=== PATIENT | male | born 1965 | race Caucasian/White ===

== ENCOUNTER → 2020-09-27 08:41 | Outpatient (BNVA) | payer OTHER, SELFPAY | PROVIDERS: PCP Nurse Practitioner Family; Referring Provider Nurse Practitioner Family; Visit Provider Nurse Practitioner Family ==

== ENCOUNTER 2020-11-26 07:12 | Day surgery (SDC) | payer OTHER, SELFPAY ==
[2020-11-22 19:04] VITALS: BMI 29.7
--- NOTE | 2020-11-26 07:43 | MHC.SHP ---
Pre-Procedural Eval Section A Date of Service: 11/26/20 The patient is an INPATIENT: No The History & Physical has been completed within 30 days and I have reviewed it.: No Section B Chief Complaint: Screening Details of Present Illness: Colon cancer screening Relevant Family History (Specify if Yes): No Relevant Social History: Tobacco Use Present Medications: see Short Stay Collaborative assessment Medical History: Significant History (Htn) History of Previous Operations: Relevant previous surgery/procedure and date(s) (Inguinal hernia surgery) Allergies: Allergies Allergy/AdvReac Type Severity Reaction Status Date / Time codeine Allergy Unknown Unknown Verified 09/27/20 09:03 Any med. w/ codeine AdvReac Unknown Unknown Uncoded 11/26/20 07:12 Review of Systems Sugical H&P ROS: Negative: Constitution, Cardiovascular, Respiratory and Gastrointestinal Exam Surgical H&P Exam: Normal: Heart, Normal: Lungs, Normal: Extremities and Normal: Abdomen Plan Diagnosis/Plan: Unchanged I have reviewed the history and physical and performed a pertinent physical examination on my patient. No changes have occurred unless specified.
[2020-11-26 07:59] VITALS: BP 160/92; PULSE 78; RESP 16; TEMP 36.1; O2SAT 97
--- NOTE | 2020-11-26 08:02 | HO.ANESPROP2 ---
HPI - Anesthesia Eval Consult details Narrative: 55 yo male patient for colonoscopy PMFSH Active Problems Active Problems: All Active Problems (Updated 11/22/20 @ 19:03 by Trudi Loco RN) Physical exam (Acute) Screening PSA (prostate specific antigen) (Acute) Screening for colon cancer (Acute) Etoh- 3 beers a day Smoker H/o right leg surgery- slow awakening Past Medical History Medical History High cholesterol Hypertension Laceration of leg Family History Family History Father No problems noted. Mother Breast cancer Son No problems noted. Son No problems noted. Maternal Grandfather No problems noted. Maternal Grandmother Cancer Paternal Grandfather No problems noted. Paternal Grandmother No problems noted. Family history of problems with anesthesia: No Surgical History Surgical History History of inguinal hernia History of Problems with Anesthesia: Yes (Slow awakening) Social History Social History Alcohol intake: current Alcohol intake frequency: 3 or more drinks per day Patient Tobacco Use Status: Current everyday Tobacco user Tobacco use type: Cigarette Cigarette Packs Per Day: 1 Cigarettes Per Day: 20.0 Years Smoked: 35 Smoked in Last 30 Days: Yes Patient Interested in Nicotine Replacement: No Patient Given Instructions on How to Stop Smoking: Yes Date Education Initiated: 11/22/20 Use of substances other than those prescribed or required for medical reasons: No Are you DNR?: No Advance Directives: No Advance Directives Information Provided: No Advance Directives on File: No Recently lost weight without trying: No Meds Allergies Allergy/AdvReac Type Severity Reaction Status Date / Time codeine Allergy Unknown Unknown Verified 09/27/20 09:03 Any med. w/ codeine AdvReac Unknown Unknown Uncoded 11/26/20 07:12 Home Medications Medication Instructions Recorded Confirmed Last Taken Type cyclobenzaprine 5 mg tablet 5 mg PO TID PRN 11/22/20 11/22/20 Unknown History melatonin 1 mg tablet 0.5 mg PO BEDTIME 11/22/20 11/22/20 Unknown History Exam Exam Date and Time: November 26, 2020 0802 Height,Weight and Vital Signs: Height 5 ft 7 in Weight 86.183 kg Vital Signs Temp Pulse Resp BP Pulse Ox 11/26/20 07:59 96.9 F 78 16 160/92 H 97 Airway Mallampati Class: III TM Dist: >3cm Neck ROM: Full Heart: RRR Lungs: CTAB Assessment and Plan Assessment Anesthesia Assessment: Anesthesia Plan Discussed and Chart Reviewed Final Anesthetic Review Family History of Problems with Anesthesia: No History of Problems with Anesthesia: Yes (Slow awakening) NPO: Yes ASA Class: II Final Preanesthetic Review: No Changes in Pt Med Stat, Meds/Allgs Chart Reviewed, Consent Obtained/Reviewed and Anes Risks/Benef Reviewed Patient Risk: Low Procedure Risk: Low Assessment/Block/Sedation in SS: Assess/Block/Sedation-SS Anesthetic Plan Anesthetic Plan: MAC: Disposition: Standard PACU
[2020-11-26] MEDS: Lactated Ringers 1,000 ML 100 ML IVCONT (08:05)
--- NOTE | 2020-11-26 08:28 | W.PM.OPN ---
Operative Note Operative Note Date of Service: 11/26/20 Narrative: Pre-op diagnosis:?Colon cancer screening Post-op diagnosis:?other (Colon polyps, diverticulosis, hemorrhoids) Procedure:? COLONOSCOPY TILL CECUM WITH BIOPSIES AND SNARE POLYPECTOMY Consent: Indications for the procedure and potential complications of bleeding, perforation, reaction to medications and missed diagnosis were discussed with the patient and informed consent was obtained. Instrument: Olympus PCF H 190 L variable stiffness pediatric colonoscope Monitoring: Vital signs and clinical assessment, intermittent blood pressure monitoring, continuous EKG monitoring, Pulse oximetry and Carbon Dioxide monitoring were done throughout the procedure. Colon withdrawl time was 39 minutes. Procedure: The patient was placed in the left lateral decubitis position and pre-procedure medications were administered. After a digital rectal examination of the ano-rectum, the video colonoscope was inserted into the rectum and advanced through the colon to the cecum. The colonoscope was slowly withdrawn in a retrograde panoramic fashion and the colon mucosa was carefully examined including a retroflexed view of the rectum. Findings and interventions are described below. Procedure Difficulty:? Exam was compromised by excessive spasm requiring several passes Findings: Terminal Ileum: Not evaluated Cecum:? Normal Ascending Colon:? Two 10-15 mm sessile polyps removed with a hot snare.? Moderate diverticulosis Transverse Colon:? Moderate diverticulosis Descending Colon:? Moderate diverticulosis Sigmoid Colon:? Three 5-10 mm sessile polyps removed with a cold bx and a hot snare.? Moderate diverticulosis Rectum:? Normal Ano-rectum:? Moderate internal hemorrhoids Colon preparation:? Good after copious irrigation and fair in some areas of the colon Impression and Post Procedure Diagnosis: Colonoscopy Findings: Five small to medium sized polyps removed Moderate diverticulosis seen in the entirecolon Moderate hemorrhoids on retroflexed exam. Plan: Await pathology results Patient has an appointment on 12/10/20 in the GI Clinic with ? Steffi Roberts, THEATRICAL SCENIC DESIGNER-JO . Repeat Colonoscopy interval based on path results - in 3 years if polyps are adenomatous and 10 years if polyps are hyperplastic. Above findings were reviewed with the patient and colon polyps and diverticulosis handouts were given in the discharge area Surgeon:?Flower Lacy MD Anesthesia:?MAC (Zaira Cali CRNA) Was an Glass Mold Repairer used for this Procedure?:?No Glass Mold Repairer:?Karen Wilson Estimated blood loss (mL):?0 Pathology:?other ( A. ascending colon polyps? B. sigmoid polyps) Condition:?stable Disposition:?PACU
[2020-11-26 09:31] VITALS: BP 111/67; PULSE 71; RESP 12; TEMP 36.2; O2SAT 99
[2020-11-26 09:46] VITALS: BP 139/89; PULSE 69; RESP 18; TEMP 36.2; O2SAT 100
== END 2020-11-26 10:35 | disposition home or self-care (01) ==
PROVIDERS: PCP Nurse Practitioner Family; Visit Provider Internal Medicine Gastroenterology
PROC: 0DJD8ZZ Inspection of Lower Intestinal Tract, Via Natural or Artificial Opening Endoscopic (ICD-10-PCS; CPT 45378; principal; 2020-11-26 08:20)
DX: Z12.11 Encounter for screening for malignant neoplasm of colon (principal); D12.2 Benign neoplasm of ascending colon; D12.5 Benign neoplasm of sigmoid colon; K57.30 Diverticulosis of large intestine without perforation or abscess without bleeding; K64.8 Other hemorrhoids; Z88.8 Allergy status to other drugs, medicaments and biological substances; I10 Essential (primary) hypertension; Z79.899 Other long term (current) drug therapy; F17.210 Nicotine dependence, cigarettes, uncomplicated
CPT/HCPCS: 45385; 45380; 88305; J2250

== ENCOUNTER 2021-07-11 15:00 | Inpatient (IN) | payer OTHER, SELFPAY ==
--- NOTE | 2021-07-11 | ECG_ITS ---
Test Reason : chest pain Blood Pressure : / mmHG Vent. Rate : 078 BPM Atrial Rate : 078 BPM P-R Int : 184 ms QRS Dur : 086 ms QT Int : 390 ms P-R-T Axes : 049 069 067 degrees QTc Int : 444 ms Normal sinus rhythm Nonspecific ST abnormality Abnormal ECG No previous ECGs available Referred By: Generic ED Physician Electronically Signed By:AMALIA POLANCO
[2021-07-11 15:07] VITALS: BP 132/80; PULSE 81; RESP 18; TEMP 36.9; O2SAT 96; BMI 30.2
[2021-07-11 15:27] LABS: MANUAL DIFF FLAG NO
[2021-07-11 15:30] LABS: Basophils Absolute Auto 0.1 X10*3/uL (0.0-0.2); Basophils Percent Auto 0.9 % (0-2); Eosinophils Absolute Auto 0.3 X10*3/uL (0.0-0.4); Eosinophils Percent Auto 3.3 % (0-4); Hematocrit 44.5 % (42.0-52.0); Hemoglobin 16.1 g/dl (14.0-18.0); Imm Gran Abs Auto 0.02 X10*3/uL (0.00-0.03); Imm Gran Pct Auto 0.2 % (0.0-0.4); Lymphocytes Absolute Auto 2.8 X10*3/uL (1.2-4.9); Lymphocytes Percent Auto 31.7 % (20-40); Mean Corpuscular HGB Conc 36.2 g/dl (31.0-36.0); Mean Corpuscular Hemoglobin 31.9 pg (27.0-33.0); Mean Corpuscular Volume 88.3 fL (80.0-98.0); Monocytes Absolute Auto 0.8 X10*3/uL (0.1-1.2); Monocytes Percent Auto 9.1 % (2-11); Neutrophils Absolute Auto 4.9 x10*3/uL (2.0-8.3); Neutrophils Percent Auto 54.8 % (45-73); Platelet Count 258 X10*3/uL (160-400); Red Blood Count 5.04 X10*6/uL (4.60-5.80); Red Cell Distribution Width 12.6 % (11.0-16.0); White Blood Count 8.9 X10*3/uL (4.8-10.8)
[2021-07-11 15:44] LABS: Anion Gap 10 (12-20); Blood Urea Nitrogen 11 mg/dL (9-16); Calcium 9.3 mg/dL (8.4-10.2); Carbon Dioxide 28 mmol/L (22-29); Chloride 97 mmol/L (96-108); Creatinine Clr Calc Pharmacy 107.4; Estimated Glomerular Filt Rate > 60; Glucose Random 97 mg/dL (60-115); Potassium 3.9 mmol/L (3.3-5.1); Sodium 131 mmol/L (135-145)
[2021-07-11 15:52] LABS: Troponin-I High Sensitivity 346.2 ng/L (<3.5-35.0)
--- NOTE | 2021-07-11 16:49 | ED_ITS ---
HPI - Chest Pain General Chief Complaint: Chest Pain Stated Complaint: chest pain t-1 Time Seen by Provider: 07/11/21 16:28 Source: patient Mode of arrival: ambulatory Limitations: no limitations History of Present Illness HPI narrative: Patient comes to the emergency room, states that his primary care physician made him come. Patient has been complaining of chest pain and chest pressure for about a year, intermittent, worse with exertion. However, over the last month, patient states that with any exertion he gets chest pain and is becoming more frequent. Yesterday patient was doing laundry, he started having chest pain, it was very intense, patient considered calling 911 but the chest pain subsided. This morning, once again when patient was doing minimal exertion, patient started having chest pain again. At this time, patient is asymptomatic. Denies shortness of breath. Patient admits smoking and drinking every day Related Data Home Medications Medication Instructions Recorded Confirmed melatonin 1 mg tablet 0.5 mg PO BEDTIME 11/22/20 11/22/20 Previous Rx's Medication Instructions Recorded losartan 50 mg tablet 50 mg PO BID #180 tab 04/11/21 atorvastatin 10 mg tablet 10 mg PO DAILY 90 Days #90 tab 04/30/21 hydrochlorothiazide 25 mg tablet 25 mg PO DAILY 90 Days #90 tab 04/30/21 carvedilol 6.25 mg tablet 6.25 mg PO BID 90 Days #180 tab 05/24/21 Allergies Allergy/AdvReac Type Severity Reaction Status Date / Time codeine Allergy Unknown Unknown Verified 07/11/21 15:07 Any med. w/ codeine AdvReac Unknown Unknown Uncoded 07/11/21 15:07 Review of Systems Review of Systems: Constitutional : No Weight loss, No Fever, No Chills, No Night Sweats, No Fatigue, No Malaise ENT/Mouth : No Hearing loss, No Ear Pain, No Nasal Congestion, No Sinus Pain, No Hoarseness, No sore throat, No Rhinorrhea, No Swallowing Difficulty Eyes: No Eye Pain, No Swelling, No Redness, No Foreign Body, No Discharge, No Vision Changes Cardiovascular : Complaining of chest pain and chest pressure with minimal exertion, asymptomatic at this time. No Dyspnea on Exertion, No Orthopnea, No Edema, No Palpitations Respiratory : No Cough, No Sputum, No Wheezing, No Smoke Exposure, No Dyspnea Gastrointestinal : No Nausea, No Vomiting, No Diarrhea, No Constipation, No abdominal Pain, No Hematochezia, No Melena Genitourinary : no irregular bleeding, No Dysuria, No Urinary Frequency, No Hematuria, No Urinary Incontinence, No Urgency, No Flank Pain, No Urinary Flow Changes, No Hesitancy Musculoskeletal : No joint pain, No Myalgias, No Joint Swelling Skin : No Skin Lesions, No rash Neuro : No Weakness, No Numbness, No Paresthesias, No Loss of Consciousness, No Dizziness, No Headache Psych : No Anxiety/Panic, No Depression, No SI/HI/AH/VH, No Social Issues, Heme/Lymph: No Bruising, No Bleeding,No Lymphadenopathy Endocrine : No Polyuria, No Polydipsia, No Temperature Intolerance [facility] Past Medical History Medical History High cholesterol Hypertension Laceration of leg Surgical History History of inguinal hernia Family History Family History (Updated 07/11/21 @ 13:06 by Reshma Vidales CMA) Father No problems noted. Mother Breast cancer Son No problems noted. Son No problems noted. Maternal Grandfather No problems noted. Maternal Grandmother Cancer Paternal Grandfather No problems noted. Paternal Grandmother No problems noted. Social History Social History Housing: House Alcohol intake: current Alcohol intake frequency: 3 or more drinks per day Alcohol type: beer Patient Tobacco Use Status: Current everyday Tobacco user Tobacco use type: Cigarette Cigarette Packs Per Day: 1 Cigarettes Per Day: 20.0 Years Smoked: 35 Smoked in Last 30 Days: Yes e-Cigarette/Vaping Use: Never Used Use of substances other than those prescribed or required for medical reasons: No Advance Directives: No Advance Directives Information Provided: No service: No Current occupational status: employed Cognitive needs: No Hearing needs: No Vision needs: No Physical Exam Vital Signs: Vital Signs: Last Vital Signs Temp 98.5 F 07/11/21 15:07 Pulse 76 07/11/21 19:15 Resp 23 H 07/11/21 19:15 BP 152/92 H 07/11/21 19:15 Pulse Ox 96 07/11/21 19:15 BMI result Body Mass Index 30.2 Const: Other: Appearance: Alert. Oriented X3. No acute distress. Eyes: Pupils equal, round and reactive to light. ENT: Pharynx normal. Neck: Normal inspection. Neck supple. No lymph nodes noted. No crepitus CVS: Normal heart rate and rhythm. Pulses normal. Normal S1 and S2 Respiratory: No respiratory distress. Breath sounds normal. No Wheezing. No rales Abdomen: Soft and nontender. No rigidity. No distention. Skin: Skin warm and dry. Normal skin color. Normal skin turgor. Extremities: No lower extremity edema. No Lacerations. No Rash Neuro: Oriented X 3. No motor deficit. No sensory deficit. Moving all extremities. No slurred speech. CN 2 through 12 grossly intact Psych: calm, cooperative, normal affect Course Course Course Narrative: While patient was in the waiting room, labs were obtained. Patient's troponin is 346. We do not have previous troponins to compare this to. EKG does not show any acute abnormalities. Patient remains asymptomatic. I discussed with the patient that we will repeat troponin in 2 hours from now. Patient has stable angina. Patient eventually may need a cardiac catheterization. Once we have a 2nd troponin, we will get a Cardiology consult, and discuss a disposition plan for the patient, likely admission versus transfer to [facility] for cardiac catheterization. I discussed the patient with Dr. Abbasi. Patient needs to be transferred to [facility], he will likely need a catheterization. Patient is stable, asymptomatic. I discussed the patient with Dr. Medina from [facility] Cardiology. Patient has been [facility]. However, they do not have any beds available. In the meantime, the recommendation is to keep the patient admitted in our hospital at [place], when a bed becomes available patient will be transf erred. Patient has been started on IV heparin, patient also getting full dose aspirin, atorvastatin and metoprolol. Patient will be admitted, discussed the patient with Dr. Rivas. MDM - Chest Pain Lab Data Result diagrams: 07/11/21 15:18 07/11/21 15:18 Labs: Lab Results 07/11/21 07/11/21 07/11/21 Range/Units 15:18 15:18 15:18 WBC 8.9 (4.8-10.8) X10*3/uL RBC 5.04 (4.60-5.80) X10*6/uL Hgb 16.1 (14.0-18.0) g/dl Hct 44.5 (42.0-52.0) % MCV 88.3 (80.0-98.0) fL MCH 31.9 (27.0-33.0) pg MCHC 36.2 H (31.0-36.0) g/dl RDW 12.6 (11.0-16.0) % Plt Count 258 (160-400) X10*3/uL MPV 10.0 (9.4-12.4) fL Immature Gran % (Auto) 0.2 (0.0-0.4) % Neut % (Auto) 54.8 (45-73) % Lymph % (Auto) 31.7 (20-40) % Davis % (Auto) 9.1 (2-11) % Eos % (Auto) 3.3 (0-4) % Baso % (Auto) 0.9 (0-2) % Lymph # (Auto) 2.8 (1.2-4.9) X10*3/uL Davis # (Auto) 0.8 (0.1-1.2) X10*3/uL Eos # (Auto) 0.3 (0.0-0.4) X10*3/uL Baso # (Auto) 0.1 (0.0-0.2) X10*3/uL Abs Immat Gran (auto) 0.02 (0.00-0.03) X10*3/uL Absolute Neuts (auto) 4.9 (2.0-8.3) x10*3/uL Absolute Nucleated RBC 0.000 (0.0-0.012) X10*3/uL Nucleated RBC % (auto) 0.0 (0.0-0.2) /100WBC Sodium 131 L (135-145) mmol/L Potassium 3.9 (3.3-5.1) mmol/L Chloride 97 (96-108) mmol/L Carbon Dioxide 28 (22-29) mmol/L Anion Gap 10 L (12-20) BUN 11 (9-16) mg/dL Creatinine 0.83 (0.5-1.4) mg/dL Estim Creat Clear Calc 107.4 Estimated GFR > 60 Random Glucose 97 (60-115) mg/dL Calcium 9.3 (8.4-10.2) mg/dL Troponin I High Sens 346.2 H* (<3.5-35.0) ng/L COVID-19 (MADDI) (Negative) COVID-19 Clin Com 07/11/21 07/11/21 Range/Units 18:10 19:02 WBC (4.8-10.8) X10*3/uL RBC (4.60-5.80) X10*6/uL Hgb (14.0-18.0) g/dl Hct (42.0-52.0) % MCV (80.0-98.0) fL MCH (27.0-33.0) pg MCHC (31.0-36.0) g/dl RDW (11.0-16.0) % Plt Count (160-400) X10*3/uL MPV (9.4-12.4) fL Immature Gran % (Auto) (0.0-0.4) % Neut % (Auto) (45-73) % Lymph % (Auto) (20-40) % Davis % (Auto) (2-11) % Eos % (Auto) (0-4) % Baso % (Auto) (0-2) % Lymph # (Auto) (1.2-4.9) X10*3/uL Davis # (Auto) (0.1-1.2) X10*3/uL Eos # (Auto) (0.0-0.4) X10*3/uL Baso # (Auto) (0.0-0.2) X10*3/uL Abs Immat Gran (auto) (0.00-0.03) X10*3/uL Absolute Neuts (auto) (2.0-8.3) x10*3/uL Absolute Nucleated RBC (0.0-0.012) X10*3/uL Nucleated RBC % (auto) (0.0-0.2) /100WBC Sodium (135-145) mmol/L Potassium (3.3-5.1) mmol/L Chloride (96-108) mmol/L Carbon Dioxide (22-29) mmol/L Anion Gap (12-20) BUN (9-16) mg/dL Creatinine (0.5-1.4) mg/dL Estim Creat Clear Calc Estimated GFR Random Glucose (60-115) mg/dL Calcium (8.4-10.2) mg/dL Troponin I High Sens 426.6 H* (<3.5-35.0) ng/L COVID-19 (MADDI) Negative (Negative) COVID-19 Clin Com See Note Discharge Plan Discharge Clinical Impression: Non-ST elevation LA (NSTEMI) Patient Disposition: Admitted As Inpatient Prescriptions: No Action losartan 50 mg tablet 50 mg PO BID Qty: 180 3RF hydrochlorothiazide 25 mg tablet 25 mg PO DAILY 90 Days Qty: 90 1RF atorvastatin 10 mg tablet 10 mg PO DAILY 90 Days Qty: 90 1RF carvedilol 6.25 mg tablet 6.25 mg PO BID 90 Days Qty: 180 0RF melatonin 1 mg Tablet 0.5 mg PO BEDTIME 0RF
[2021-07-11 18:24] VITALS: BP 140/81; PULSE 77; RESP 20; O2SAT 97
[2021-07-11 18:42] LABS: Troponin-I High Sensitivity 426.6 ng/L (<3.5-35.0)
--- NOTE | 2021-07-11 18:54 | PC.NURSE ---
DR NEWMAN REQUESTS CALL OUT TO [facility] PT TX LINE @ THIS TIME ELSIE ANSWERS, TAKES PT INFO, AND ASKS TO SPEAK WITH DR TRENT NEWMAN TAKES OVER CALL RIGHT AWAY
[2021-07-11 19:15] VITALS: BP 152/92; PULSE 76; RESP 23; O2SAT 96
[2021-07-11 19:23] LABS: COVID-19 Test Negative (Negative); IDNOW Serial# 55D5AD1C
[2021-07-11 19:24] VITALS: BMI 30.3
--- NOTE | 2021-07-11 19:31 | ECG_ITS ---
Test Reason : CP Blood Pressure : / mmHG Vent. Rate : 065 BPM Atrial Rate : 065 BPM P-R Int : 196 ms QRS Dur : 086 ms QT Int : 414 ms P-R-T Axes : 057 072 072 degrees QTc Int : 430 ms Normal sinus rhythm Nonspecific ST abnormality Borderline ECG When compared with ECG of 11-JUL-2021 15:09, No significant change was found Referred By: Yary Cabello Electronically Signed By:AMALIA POLANCO
--- NOTE | 2021-07-11 19:34 | PM.IMHP ---
History of Present Illness Date of Service: 07/11/21 Chief Complaint: chest pain 55-year-old male with a past medical history of hypertension, hyperlipidemia presented to the hospital with a chief complaint of chest pain. patient reported that chest pain is located in the center of the chest, nonradiating, denies any lightheadedness dizziness nausea vomiting or diaphoresis. Mentions chest pain is 10/10 in intensity. Reports that he has been having chest pain for many months but over the past month it has been increased in frequency; and yesterday when he did the laundry had leg severe chest pain. Reports the chest pain comes on with minimal exertion. Subsequently visited his PCP who suggested him to go to the ER for further evaluation. Patient denies any chest pain at the time of my entry. Denies any fever chills cough. Denies any recent travel or sick contacts. Review of all other systems is negative except mentioned above ER course: Per ER team patient noted to have nonischemic EKG; troponins elevated 346->426; spoke to Dr. Abbasi who suggested transfer to the [facility] for possible catheterization. ER team spoke to Dr. Medina color paste mixer at [facility] who mentioned patient will be taken to the cardiac service once bed is available until then recommended to admit to the [facility]. [facility] Medical History High cholesterol Hypertension Laceration of leg Family History (Updated 07/11/21 @ 13:06 by Reshma Vidales CMA) Father No problems noted. Mother Breast cancer Son No problems noted. Son No problems noted. Maternal Grandfather No problems noted. Maternal Grandmother Cancer Paternal Grandfather No problems noted. Paternal Grandmother No problems noted. Surgical History History of inguinal hernia Social History Housing: House Alcohol intake: current Alcohol intake frequency: 3 or more drinks per day Alcohol type: beer Patient Tobacco Use Status: Current everyday Tobacco user Tobacco use type: Cigarette Cigarette Packs Per Day: 1 Cigarettes Per Day: 20.0 Years Smoked: 35 Smoked in Last 30 Days: Yes e-Cigarette/Vaping Use: Never Used Use of substances other than those prescribed or required for medical reasons: No Advance Directives: No Advance Directives Information Provided: No service: No Current occupational status: employed Cognitive needs: No Hearing needs: No Vision needs: No Meds Allergies Allergy/AdvReac Type Severity Reaction Status Date / Time codeine Allergy Unknown Unknown Verified 07/11/21 15:07 Any med. w/ codeine AdvReac Unknown Unknown Uncoded 07/11/21 15:07 Active Medications: Current Medications Heparin Sodium/Sodium Chloride () 25,000 unit in 250 mls @ 0 mls/hr IVCONT .Q0M MAX; Protocol Home Medications Medication Instructions Recorded Confirmed Last Taken Type melatonin 10 mg tablet 10 mg PO BEDTIME 07/11/21 07/11/21 07/10/21 History Physical Exam Vital Signs and Narrative: Vital Signs: Last Vital Signs Temp 98.5 F 07/11/21 15:07 Pulse 76 07/11/21 19:15 Resp 23 H 07/11/21 19:15 BP 152/92 H 07/11/21 19:15 Pulse Ox 96 07/11/21 19:15 BMI result Body Mass Index 30.3 Gen: Appears be in no acute distress HEENT: NCAT, Moist mucosa. Pulmonary: Vesicular breath sounds, fair air entry CVS: Normal S1-S2 Abdomen: BS+, Soft, Nontender Extremities: Warm well perfused Neuro: Alert and awake. Results Labs CBC and Chem 7: 07/11/21 20:08 07/11/21 15:18 Labs: Laboratory Results - last 24 hr 07/11/21 07/11/21 07/11/21 15:18 15:18 15:18 MCV 88.3 MCH 31.9 MCHC 36.2 H RDW 12.6 Plt Count 258 MPV 10.0 Immature Gran % (Auto) 0.2 Neut % (Auto) 54.8 Lymph % (Auto) 31.7 Rich % (Auto) 9.1 Eos % (Auto) 3.3 Baso % (Auto) 0.9 Lymph # (Auto) 2.8 Rich # (Auto) 0.8 Eos # (Auto) 0.3 Baso # (Auto) 0.1 Abs Immat Gran (auto) 0.02 Absolute Neuts (auto) 4.9 Absolute Nucleated RBC 0.000 Nucleated RBC % (auto) 0.0 Anion Gap 10 L Estim Creat Clear Calc 107.4 Estimated GFR > 60 Random Glucose 97 Calcium 9.3 Troponin I High Sens 346.2 H* COVID-19 (MADDI) COVID-19 Clin Com 07/11/21 07/11/21 18:10 19:02 MCV MCH MCHC RDW Plt Count MPV Immature Gran % (Auto) Neut % (Auto) Lymph % (Auto) Rich % (Auto) Eos % (Auto) Baso % (Auto) Lymph # (Auto) Rich # (Auto) Eos # (Auto) Baso # (Auto) Abs Immat Gran (auto) Absolute Neuts (auto) Absolute Nucleated RBC Nucleated RBC % (auto) Anion Gap Estim Creat Clear Calc Estimated GFR Random Glucose Calcium Troponin I High Sens 426.6 H* COVID-19 (MADDI) Negative COVID-19 Clin Com See Note Assessment and Plan (1) Non-ST elevation NE (NSTEMI): Status: Acute Plan 55-year-old male with a past medical history of hypertension, hyperlipidemia presented to the hospital with a chief complaint of chest pain. worsens with minimal exertion. Currently chest pain-free. Troponins elevated. Concern for NSTEMI. Admitted for further management. NSTEMI: Patient received aspirin, statin, betablocker in the ER->Will continue. Patient was also started on heparin drip. Sublingual nitroglycerin p.r.n. Telemetry Echo Cardiology consult Dr. Medina at [facility] has accepted the patient possible cardiac catheterization. Pending bed availability. History of hypertension /hyperlipidemia: Continue home medications. DVT prophylaxis: patient on heparin drip Code status: Full code Quality Stroke Does the patient have a stroke diagnosis?: No VTE Prior VTE?: No VTE Risk Level:: Medical - moderate - high VTE Device Contraindication: Treatment Not Indicated VTE Drug Contraindication: N/A - Med Ordered
[2021-07-11] MEDS: Metoprolol Tartrate 50 MG TABLET PO (19:49)
[2021-07-11] MEDS: Aspirin Enteric Coated 325 MG TABLET.DR PO (19:49)
[2021-07-11] MEDS: Atorvastatin Calcium 80 MG TABLET PO (19:50)
--- NOTE | 2021-07-11 20:30 | PHA.MEDREC ---
Pharmacy Consult ? Medication Reconciliation Pharmacy has completed the medication reconciliation. Spoke with patient in the ED. Patient had all medication bottles with him. pt took all am medications but did not take evening meds.
[2021-07-11 20:53] LABS: Prothrombin Time 11.4 SEC (9.9-13.0)
[2021-07-11 20:55] LABS: Partial Thromboplastin Time 35.7 SEC (24.1-38.0)
[2021-07-11 21:10] LABS: Hemoglobin 16.5 g/dl (14.0-18.0); Mean Corpuscular HGB Conc 35.9 g/dl (31.0-36.0); Mean Corpuscular Hemoglobin 31.8 pg (27.0-33.0); Mean Corpuscular Volume 88.6 fL (80.0-98.0); Mean Platelet Volume 10.5 fL (9.4-12.4); Platelet Count 240 X10*3/uL (160-400); Red Blood Count 5.19 X10*6/uL (4.60-5.80); Red Cell Distribution Width 12.6 % (11.0-16.0); White Blood Count 9.1 X10*3/uL (4.8-10.8)
[2021-07-11 21:44] VITALS: BP 152/89; PULSE 65; RESP 24; O2SAT 96
[2021-07-11] MEDS: Heparin Sodium,Porcine 5,000 UNIT/ML VIAL 4000 UNIT IVPUSH (21:47)
[2021-07-11] MEDS: Heparin Sodium,Porcine/1/2NS 25,000 UNIT/250 ML IV.SOLN 12.29 UNIT IVCONT (21:54)
[2021-07-11 23:20] VITALS: BP 147/85; PULSE 70; RESP 23; O2SAT 96
[2021-07-11] MEDS: 0.9 % Sodium Chloride Flush 3 ML SYRINGE IVFLUSH (23:22)
--- NOTE | 2021-07-11 23:46 | PC.NURSE ---
Patient Bed assignment M5 [id number] NURSE TO NURSE [phone]
--- NOTE | 2021-07-11 23:48 | PM.DS ---
DS: Providers Provider Date of Service: 07/11/21 Date of admission: 07/11/21 19:32 Primary care physician: Asad Washburn [facility] DS: Diagnosis Discharge Diagnosis (1) Non-ST elevation CT (NSTEMI): Status: Acute DS: Summary Time Spent with Patient Time attestation: Total time spent providing and/or coordinating discharge services: Discharge coordination time: Less than 30 minutes Quality: Safe Use of Opioids Does Pt have an Active Cancer Diagnosis on the Problem List?: No Quality: Stroke Does the patient have a stroke diagnosis?: No Physical Exam Vital Signs: Vital Signs: Last Vital Signs Temp 98.5 F 07/11/21 15:07 Pulse 70 07/11/21 23:20 Resp 23 H 07/11/21 23:20 BP 147/85 H 07/11/21 23:20 Pulse Ox 96 07/11/21 23:20 BMI result Body Mass Index 30.3 DS: Data Data Completed and Pending Labs on day of discharge: Laboratory Results - last 24 hr 07/11/21 07/11/21 07/11/21 15:18 15:18 15:18 WBC 8.9 RBC 5.04 Hgb 16.1 Hct 44.5 MCV 88.3 MCH 31.9 MCHC 36.2 H RDW 12.6 Plt Count 258 MPV 10.0 Immature Gran % (Auto) 0.2 Neut % (Auto) 54.8 Lymph % (Auto) 31.7 [place] % (Auto) 9.1 Eos % (Auto) 3.3 Baso % (Auto) 0.9 Lymph # (Auto) 2.8 [place] # (Auto) 0.8 Eos # (Auto) 0.3 Baso # (Auto) 0.1 Abs Immat Gran (auto) 0.02 Absolute Neuts (auto) 4.9 Absolute Nucleated RBC 0.000 Nucleated RBC % (auto) 0.0 PT INR APTT Sodium 131 L Potassium 3.9 Chloride 97 Carbon Dioxide 28 Anion Gap 10 L BUN 11 Creatinine 0.83 Estim Creat Clear Calc 107.4 Estimated GFR > 60 Random Glucose 97 Calcium 9.3 Troponin I High Sens 346.2 H* COVID-19 ([facility]) COVID-19 Clin Com 07/11/21 07/11/21 07/11/21 18:10 19:02 20:08 WBC RBC Hgb Hct MCV MCH MCHC RDW Plt Count MPV Immature Gran % (Auto) Neut % (Auto) Lymph % (Auto) [place] % (Auto) Eos % (Auto) Baso % (Auto) Lymph # (Auto) [place] # (Auto) Eos # (Auto) Baso # (Auto) Abs Immat Gran (auto) Absolute Neuts (auto) Absolute Nucleated RBC Nucleated RBC % (auto) PT 11.4 INR 1.0 APTT 35.7 Sodium Potassium Chloride Carbon Dioxide Anion Gap BUN Creatinine Estim Creat Clear Calc Estimated GFR Random Glucose Calcium Troponin I High Sens 426.6 H* COVID-19 ([facility]) Negative COVID-19 Clin Com See Note 07/11/21 20:08 WBC 9.1 RBC 5.19 Hgb 16.5 Hct 46.0 MCV 88.6 MCH 31.8 MCHC 35.9 RDW 12.6 Plt Count 240 MPV 10.5 Immature Gran % (Auto) Neut % (Auto) Lymph % (Auto) [place] % (Auto) Eos % (Auto) Baso % (Auto) Lymph # (Auto) [place] # (Auto) Eos # (Auto) Baso # (Auto) Abs Immat Gran (auto) Absolute Neuts (auto) Absolute Nucleated RBC 0.000 Nucleated RBC % (auto) 0.0 PT INR APTT Sodium Potassium Chloride Carbon Dioxide Anion Gap BUN Creatinine Estim Creat Clear Calc Estimated GFR Random Glucose Calcium Troponin I High Sens COVID-19 ([facility]) COVID-19 Clin Com Discharge Plan Discharge Patient Disposition: Xfer Acute Care Hospital Discharge Diagnosis: NSTEMI Referrals: [facility] [Outside] - 1 Week Asad Washburn FNP- [Primary Care Provider] - 1 Week Discharge Medications: New atorvastatin 80 mg Tablet 80 mg PO BEDTIME Qty: 30 0RF nitroglycerin [Nitrostat] 0.4 mg Tablet, Sublingual 0.4 mg sublingual Q5MX3 PRN (Reason: Chest Pain) Qty: 10 0RF aspirin 81 mg Tablet,Chewable 81 mg PO DAILY Qty: 30 0RF Continued losartan 50 mg tablet 50 mg PO BID Qty: 180 3RF melatonin 10 mg Tablet 10 mg PO BEDTIME No Action carvedilol 6.25 mg tablet 6.25 mg PO BID Qty: 60 0RF Protocol: Hold for SBP/HR < HOLD for SBP < : 90 HOLD for HR < : 60 hydrochlorothiazide 25 mg tablet 25 mg PO DAILY 90 Days Qty: 90 1RF Brilinta 90 mg tablet 90 mg PO BID Discharge Orders: Discharge Order (Routine); Ordered 07/11/21 Ordered By: Brian Rivas Activity on Discharge: As tolerated Stand Alone Forms: Patient Portal Discharge page Care Plan Goals: NSTEMI: f/u cardiology Tobacco cessation Health Concerns: Avoid smoking and alcohol Plan of Treatment: plz continue taking meds per cardiology recommendations Assessment: 55-year-old male with a past medical history of hypertension, hyperlipidemia presented to the hospital with a chief complaint of chest pain. worsens with minimal exertion.? Currently chest pain-free.? Troponins elevated.? Concern for NSTEMI.? Admitted for further management.? NSTEMI: Patient received aspirin, statin, betablocker in the ER->Will continue.? Patient was also started on heparin drip.? Sublingual nitroglycerin p.r.n. Telemetry Echo Cardiology consult Dr. Medina at [facility] has accepted the patient possible cardiac catheterization.? tobacco dependence: Counseled on smoking cessation. Alcohol abuse: Patient drinks about 6 beers per day. Monitor on CIWA protocol. History of hypertension /hyperlipidemia: Carvedilol, losartan, hydrochlorothiazide, statin DVT prophylaxis: ? patient on heparin drip Code status: Full code Discharge Date/Time: 07/12/21 08:21
--- NOTE | 2021-07-12 00:45 | PC.NURSE ---
Patient A&OX4, VSS. No pain noted. En route to [facility] via ambulance. Report was given to SUMMER Lopez. Heparin drip infusing to PIV at 14 units/kg/hr. Paperwork and Emtala form sent with patient.
[2021-07-12 05:30] LABS: Estimated Average Glucose 111 mg/dL; Hemoglobin A1c % 5.5 %
--- NOTE | 2021-07-12 07:24 | MHC.CM.PN ---
Patient transferred to [facility] before he could be seen by case management.
== END 2021-07-12 08:21 | disposition short-term general hospital (02) | DRG 282 ==
LOC: HO.ED 19:32 → HO.EDOVER 19:58
PROVIDERS: Admitting Provider Hospitalist; Emergency Provider Emergency Medicine; PCP Nurse Practitioner Family; Visit Provider Internal Medicine
DX: I21.4 Non-ST elevation (NSTEMI) myocardial infarction (principal); I10 Essential (primary) hypertension; E78.5 Hyperlipidemia, unspecified; F17.210 Nicotine dependence, cigarettes, uncomplicated; Z71.6 Tobacco abuse counseling; Z20.822 Contact with and (suspected) exposure to COVID-19; Z88.5 Allergy status to narcotic agent; Z79.82 Long term (current) use of aspirin; Z79.899 Other long term (current) drug therapy
CPT/HCPCS: 36415; 80048; 83036; 84484; 85025; 85027; 85610; 85730; 87635; 93005; 96365; 96375; 96376; 99285

== ENCOUNTER 2022-04-17 07:20 | Outpatient (REF) | payer BC, SELFPAY ==
[2022-04-17 10:58] LABS: MANUAL DIFF FLAG NO
[2022-04-17 11:05] LABS: Basophils Absolute Auto 0.1 X10*3/uL (0.0-0.2); Basophils Percent Auto 1.3 % (0-2); Eosinophils Absolute Auto 0.7 X10*3/uL (0.0-0.4); Eosinophils Percent Auto 10.7 % (0-4); Hematocrit 40.7 % (42.0-52.0); Hemoglobin 14.1 g/dl (14.0-18.0); Imm Gran Abs Auto 0.01 X10*3/uL (0.00-0.03); Imm Gran Pct Auto 0.1 % (0.0-0.4); Lymphocytes Absolute Auto 2.1 X10*3/uL (1.2-4.9); Lymphocytes Percent Auto 29.8 % (20-40); Mean Corpuscular HGB Conc 34.6 g/dl (31.0-36.0); Mean Corpuscular Volume 92.3 fL (80.0-98.0); Mean Platelet Volume 10.5 fL (9.4-12.4); Monocytes Absolute Auto 0.5 X10*3/uL (0.1-1.2); Monocytes Percent Auto 7.1 % (2-11); Neutrophils Absolute Auto 3.5 x10*3/uL (2.0-8.3); Platelet Count 269 X10*3/uL (160-400); Red Blood Count 4.41 X10*6/uL (4.60-5.80); Red Cell Distribution Width 12.6 % (11.0-16.0); White Blood Count 6.9 X10*3/uL (4.8-10.8)
[2022-04-17 11:29] LABS: Alanine Aminotransferase 37 U/L (0-40); Alkaline Phosphatase 48 U/L (39-117); Anion Gap 15 (12-20); Aspartate Amino Transferase 25 U/L (5-37); Bilirubin Total 0.5 mg/dL (0.0-1.0); Blood Urea Nitrogen 12 mg/dL (9-16); Calcium 9.1 mg/dL (8.4-10.2); Carbon Dioxide 24 mmol/L (22-29); Chloride 101 mmol/L (96-108); Cholesterol 134 mg/dL; Estimated Glomerular Filt Rate > 60; Glucose Fasting 92 mg/dL (60-99); HDL Cholesterol 46 mg/dL; LDL Cholesterol Calculated 62 mg/dl; Potassium 4.1 mmol/L (3.3-5.1); Sodium 136 mmol/L (135-145); Total Protein 6.4 g/dL (6.5-8.0); Triglycerides 132 mg/dL
[2022-04-17 11:46] LABS: TSH reflex Free T4 2.09 uIU/mL (0.32-4.0)
== END 2022-04-17 07:21 | disposition home or self-care (01) ==
LOC: HO.HMGCLDS 07:20
PROVIDERS: PCP Nurse Practitioner Family; Visit Provider Nurse Practitioner Family
DX: R07.9 Chest pain, unspecified (principal); I21.4 Non-ST elevation (NSTEMI) myocardial infarction; Z95.5 Presence of coronary angioplasty implant and graft
CPT/HCPCS: 36415; 80053; 80061; 84443; 85025

== ENCOUNTER 2022-04-18 08:36 | Outpatient (REF) | payer BC, SELFPAY ==
[2022-04-18 11:42] LABS: Appearance Urine Clear; Color Urine Yellow; Glucose Urine UA Negative (Negative); Leukocyte Esterase Urine Negative (Negative); Nitrite Urine Negative (Negative); PH 5.5 (5.0-9.0); Urine Blood Negative (Negative); Urine Ketones Negative (Negative); Urine Protein Negative (Neg-Trace)
== END 2022-04-18 08:37 | disposition home or self-care (01) ==
LOC: HO.HMGCLNP 08:36
PROVIDERS: Visit Provider Nurse Practitioner Family
DX: R07.9 Chest pain, unspecified (principal); I21.4 Non-ST elevation (NSTEMI) myocardial infarction; Z95.5 Presence of coronary angioplasty implant and graft
CPT/HCPCS: 81003

== ENCOUNTER 2023-05-23 08:42 | Outpatient (AMB) | payer BC, SELFPAY ==
[2023-05-23 08:42] VITALS: BP 132/84; PULSE 79; O2SAT 98; BMI 32.1
--- NOTE | 2023-05-23 08:42 | A.OFFPC_ITS ---
Vital Signs 05/23/23 08:42 Height 5 ft 7 in Weight 205 lb BMI 32.1 BP 132/84 Blood Pressure Location Lt brachial Position Sitting Pulse 79 Pulse Source Pulse Oximeter Pulse Oximetry (%) 98 Oxygen Delivery Method Room Air Intake Visit Reasons: medication follow up Intake Note: pt is here for follow up regarding medication Ambulance Officer Required: No Accompanied by: Self / Same As Patient Allergies codeine Allergy (Unknown, Verified 05/23/23 09:11) Unknown Any med. w/ codeine Adverse Reaction (Unknown, Uncoded 05/23/23 09:11) Unknown Medication List - Last Reconciled 05/23/23 by NEDRA Parker aspirin 81 mg PO DAILY atorvastatin 80 mg PO BEDTIME 90 days carvedilol 12.5 mg PO BID 90 days clopidogrel 75 mg PO DAILY cyclobenzaprine 10 mg PO BEDTIME PRN ferrous sulfate 325 mg PO DAILY hydrochlorothiazide 25 mg PO DAILY 90 days isosorbide mononitrate ER 30 mg PO DAILY 90 days losartan 50 mg PO BID melatonin 10 mg PO BEDTIME Tobacco use date assessed: 05/23/23 Dental Screening Dental Screen Date: 05/23/23 Did you have a dental visit in the last 12 months?: No Did you have a dental problem in the last 6 months where you did not have access to dental care?: No Was dental information given to patient?: Patient declined HPI medication follow up HPI Details HTN: Blood pressure is stable, managed with carvedilol 12.5mg bid, hydrochlorothiazide 25mg, isosorbide mononitrate 30mg, and losartan 50mg bid. BPs remain stable. Denies chest pain, shortness of breath, headache, dizziness, and blurred vision. Will order labs. Pt was following up with cardiology due to NSTEMI with stent (referral placed for follow up). He has not followed up due to insurance issues, will refer back to cardiology. Due for PSA, will order. Denies dribbling with urination, weak stream, and frequent nocturia. Colon screen: [facility] in [facility] Medical History High cholesterol Hypertension Laceration of leg Surgical History H/O heart artery stent History of inguinal hernia Family History Father No problems noted. Mother Breast cancer Son No problems noted. Son No problems noted. Maternal Grandfather No problems noted. Maternal Grandmother Cancer Paternal Grandfather No problems noted. Paternal Grandmother No problems noted. Social History Housing: House Alcohol intake: current Alcohol intake frequency: 3 or more drinks per day Alcohol type: beer Comment: [facility] Patient Tobacco Use Status: Former Tobacco user Tobacco use type: Cigarette Years Smoked: 35 e-Cigarette/Vaping Use: Never Used Second Hand Smoke Exposure: No service: No Current occupational status: employed Cognitive needs: No Hearing needs: No Vision needs: No Questionnaire PHQ-9 Over the last 2 weeks, how often have you been bothered by any of the following problems? 1. Little interest or pleasure in doing things: not at all 2. Feeling down, depressed, or hopeless: several days 3. Trouble falling or staying asleep, or sleeping too much: nearly every day 4. Feeling tired or having little energy: more than half the days 5. Poor appetite or overeating: several days 6. Feeling bad about yourself - or that you are a failure or have let yourself or your family down: not at all 7. Trouble concentrating on things, such as reading the newspaper or watching television: not at all 8. Moving or speaking so slowly that other people could have noticed. Or the opposite - being so fidgety or restless that you have been moving around a lot more than usual: not at all 9. Thoughts that you would be better off or of hurting yourself in some way: not at all Total score: 7 Depression Screening Interpretation: Negative Depression Screening Done: Yes 15473 - PHQ-9 Billing: Yes Source: Developed by Drs. Raymond Roman, Holley Gutierrez, Hayden Dhillon and colleagues, with an educational shonna from [employer]. Thrive Questionnaire Date Thrive assessed: 05/23/23 I am a: Patient What is your living situation today?: I have a steady place to live Within the past 12 months, did the food you bought not last and you didn't have the money to get more?: Never true Within the past 12 months, did you worry whether your food would run out before you got money to buy more?: Never true Do you have trouble paying for medicines?: No Do you have trouble getting transportation to medical appointments?: No Do you have trouble paying your heating and electricity bill?: No Do you have trouble taking care of your child, family member or friend?: No Do you have trouble with day-to-day activities such as bathing, preparing meals, shopping, managing finances, etc.?: No Are you currently unemployed and looking for a job?: No Are you interested in more education?: No Please select the resources that you would like help with: None Currently or been in a relationship where the following occur: no concerns reported THRIVE Score: 0 AUDIT C Alcohol Use Questionnaire (AUDIT-C) 1. How often do you have a drink containing alcohol?: 4 or more times a week 2. How many drinks containing alcohol do you have on a typical day when you are drinking?: 3 or 4 3. How often do you have six or more drinks on one occasion?: Daily or almost daily Total Score: 9 Score Reviewed/Action Taken: Yes ANDRES-7 AMB Questionnaire ANDRES-7 Date ANDRES - 7 assessed: 05/23/23 Feeling nervous, anxious, or on edge: 0 = Not at all Not being able to stop or control worryin = More than half the days Worrying too much about different things: 2 = More than half the days Trouble relaxin = More than half the days Being so restless that it is hard to sit still: 1 = Several days Becoming easily annoyed or irritable: 2 = More than half the days Feeling afraid as if something awful might happen: 2 = More than half the days Total ANDRES-7 score (0-4 normal; 5-9 mild; 10-14 moderate; 15-21 severe): 11 Source: Developed by Drs. Raymond Roman, Holley Gutierrez, Hayden Dhillon and colleagues, with an educational shonna from [employer] ANDRES-7 Assessment Billing ANDRES-7 Assessment Tool: ANDRES-7 Assessment 22081 Review of Systems Const Reports as per HPI Physical exam (Primary Care) Vital Signs: Last Vital Signs Pulse 79 05/23/23 08:42 BP 132/84 05/23/23 08:42 Pulse Ox 98 05/23/23 08:42 Oxygen Delivery Method Room Air 05/23/23 08:42 BMI result Body Mass Index 32.1 Tobacco/Smoking Status: Tobacco use Status Tobacco use date assessed 05/23/23 05/23/23 08:43 Patient Tobacco Use Status Former Tobacco user 05/23/23 08:43 Tobacco use type Cigarette 05/23/23 08:43 e-Cigarette/Vaping Use Never Used 05/23/23 08:43 Depression Screening Interpretation: Negative Thrive Assessment: Date of Thrive Assessment Date Thrive assessed 07/11/21 05/23/23 08:43 Currently or been in a relationship where the following occur: no concerns reported Const General: cooperative Nutritional Appearance: obese Orientation/consciousness: patient oriented x3 Resp Effort & Inspection: normal respiratory effort Auscultation: clear to auscultation bilaterally Cardio Rate: regular rate Rhythm: regular rhythm Heart sounds: S1 normal heart sound present and S2 normal heart sound present Neuro General: patient oriented x3 Extrem Right lower extremity: no edema Left lower extremity: no edema Psych Appearance: grossly normal Mental Status: mental status grossly normal Speech and movement: Normal speech and movement present Affect: normal affect Attitude: cooperative Thought process: Normal thought process present Thought content: Normal thought content present Insight: Good insight present (Psych) Judgement: Good judgement present (Psych) Assessment and Plan Assessment & Plan (1) Screening PSA (prostate specific antigen): Code(s): Z12.5 - Encounter for screening for malignant neoplasm of prostate Plan: PSA ordered (2) H/O heart artery stent: Code(s): Z95.5 - Presence of coronary angioplasty implant and graft Plan: referred back to cardio, BP stable, pt denies any s/s of cardiac distress. (3) Non-ST elevation VT (NSTEMI): Code(s): I21.4 - Non-ST elevation (NSTEMI) myocardial infarction Plan: Referred back to cardiology Plan The patient agreed to the use of a medical sonographer for this encounter. Scribed for NEDRA Carey by terrence Mistry scribe, on 05/23/2023 at 09:00 EST. Orders: Orders Comprehensive [place]. Panel Fast Today I10 - Essential (primary) hypertension TSH reflex Free T4 Today I10 - Essential (primary) hypertension Prostate Specific Antigen Scr Today Z12.5 - Encounter for screening for malignant neoplasm of prostate Complete Blood Count Auto Diff Today I10 - Essential (primary) hypertension UA CC w/rflx Micro + Cult Today I10 - Essential (primary) hypertension Lipid Panel Today I10 - Essential (primary) hypertension Referrals Cardiology Referral I21.4 - Non-ST elevation (NSTEMI) myocardial infarction, Z95.5 - Presence of coronary angioplasty implant and graft Medications: New melatonin 10 mg PO BEDTIME 90 tabs 0RF clopidogrel 75 mg PO DAILY 90 tabs 0RF ferrous sulfate 325 mg PO DAILY 90 tabs 0RF Changed From carvedilol must administer with a meal/food 12.5 mg PO BID To carvedilol must administer with a meal/food 12.5 mg PO BID 90 days 180 tabs 0RF Refilled isosorbide mononitrate ER 30 mg PO DAILY 90 days 90 tabs 1RF aspirin 81 mg PO DAILY 30 tabs 0RF atorvastatin 80 mg PO BEDTIME 90 days 90 tabs 1RF hydrochlorothiazide 25 mg PO DAILY 90 days 90 tabs 1RF losartan 50 mg PO BID 180 tabs 1RF Coding Level of Care Code Est Pt Level 3 (68898) Diagnoses Screening PSA (prostate specific antigen) Z12.5 H/O heart artery stent Z95.5 Non-ST elevation VT (NSTEMI) I21.4 Additional Codes ANDRES-7 Assessment Billing - ANDRES-7 Assessment Tool: ANDRES-7 Assessment 74238 ([id number])
== END 2023-05-23 10:54 | disposition home or self-care (01) ==
PROVIDERS: PCP Nurse Practitioner Family; Visit Provider Nurse Practitioner Family
DX: I10 Essential (primary) hypertension (principal); I25.2 Old myocardial infarction; Z12.5 Encounter for screening for malignant neoplasm of prostate; Z95.5 Presence of coronary angioplasty implant and graft
CPT/HCPCS: 99213

== ENCOUNTER 2023-11-19 08:50 | Outpatient (REF) | payer BC, SELFPAY ==
[2023-11-19 13:29] LABS: MANUAL DIFF FLAG NO
[2023-11-19 13:37] LABS: Appearance Urine Clear; Color Urine Yellow; Glucose Urine UA Negative (Negative); Leukocyte Esterase Urine Negative (Negative); Nitrite Urine Negative (Negative); PH 6.5 (5.0-9.0); Specific Gravity - Urine 1.015 (1.005-1.025); Urine Blood Negative (Negative); Urine Ketones Negative (Negative); Urine Protein Negative (Neg-Trace)
[2023-11-19 13:38] LABS: Basophils Absolute Auto 0.1 X10*3/uL (0.0-0.2); Basophils Percent Auto 1.9 % (0-2); Eosinophils Absolute Auto 0.5 X10*3/uL (0.0-0.4); Eosinophils Percent Auto 8.6 % (0-4); Hematocrit 39.8 % (42.0-52.0); Hemoglobin 14.1 g/dl (14.0-18.0); Imm Gran Abs Auto 0.03 X10*3/uL (0.00-0.03); Imm Gran Pct Auto 0.5 % (0.0-0.4); Lymphocytes Absolute Auto 1.7 X10*3/uL (1.2-4.9); Lymphocytes Percent Auto 28.9 % (20-40); Mean Corpuscular HGB Conc 35.4 g/dl (31.0-36.0); Mean Corpuscular Hemoglobin 31.2 pg (27.0-33.0); Mean Corpuscular Volume 88.1 fL (80.0-98.0); Mean Platelet Volume 10.1 fL (9.4-12.4); Monocytes Absolute Auto 0.4 X10*3/uL (0.1-1.2); Monocytes Percent Auto 6.9 % (2-11); Neutrophils Absolute Auto 3.1 x10*3/uL (2.0-8.3); Neutrophils Percent Auto 53.2 % (45-73); Platelet Count 277 X10*3/uL (160-400); Red Blood Count 4.52 X10*6/uL (4.60-5.80); Red Cell Distribution Width 12.9 % (11.0-16.0); White Blood Count 5.9 X10*3/uL (4.8-10.8)
[2023-11-19 14:00] LABS: Alanine Aminotransferase 29 U/L (0-40); Albumin Level 4.2 g/dL (3.5-5.0); Alkaline Phosphatase 56 U/L (39-117); Anion Gap 13 (12-20); Aspartate Amino Transferase 22 U/L (5-37); Bilirubin Total 0.6 mg/dL (0.0-1.0); Blood Urea Nitrogen 16 mg/dL (9-16); Calcium 9.3 mg/dL (8.4-10.2); Carbon Dioxide 27 mmol/L (22-29); Chloride 100 mmol/L (96-108); Cholesterol 120 mg/dL (<200); Estimated Glomerular Filt Rate > 60; Glucose Fasting 104 mg/dL (60-99); HDL Cholesterol 46 mg/dL (>40); LDL Cholesterol Calculated 52 mg/dL (<100); Potassium 4.2 mmol/L (3.3-5.1); Sodium 136 mmol/L (135-145); Total Protein 6.9 g/dL (6.5-8.0); Triglycerides 110 mg/dL (<150)
[2023-11-19 14:07] LABS: TSH reflex Free T4 0.96 uIU/mL (0.32-4.0)
[2023-11-19 14:21] LABS: Prostate Specific Antigen Scr 7.08 ng/mL (<0.05-4.0)
== END 2023-11-19 08:51 | disposition home or self-care (01) ==
LOC: HO.HMGCLDS 08:50
PROVIDERS: PCP Nurse Practitioner Family; Visit Provider Nurse Practitioner Family
DX: I10 Essential (primary) hypertension (principal); Z12.5 Encounter for screening for malignant neoplasm of prostate
CPT/HCPCS: 36415; 80053; 80061; 81003; 84153; 84443; 85025

== ENCOUNTER 2023-11-20 12:42 | Outpatient (AMB) | payer BC, SELFPAY ==
--- NOTE | 2023-11-20 12:52 | MHC.PC.OV ---
Vital Signs 11/20/23 12:53 11/20/23 13:34 Height 5 ft 7 in Weight 204 lb BMI 31.9 BP 138/90 H 132/80 Blood Pressure Location Lt brachial Lt brachial Position Sitting Sitting Pulse 78 Pulse Source Pulse Oximeter Pulse Oximetry (%) 98 Oxygen Delivery Method Room Air Intake Visit Reasons: PE Allergies codeine Allergy (Unknown, Verified 11/20/23 13:39) Unknown Any med. w/ codeine Adverse Reaction (Unknown, Uncoded 11/20/23 13:39) Unknown Medication List - Last Reconciled 11/20/23 by NEDRA Parker aspirin 81 mg PO DAILY atorvastatin 80 mg PO BEDTIME 90 days carvedilol 25 mg PO BID clopidogrel 75 mg PO DAILY cyclobenzaprine 10 mg PO BEDTIME PRN ferrous sulfate 325 mg PO DAILY hydrochlorothiazide 25 mg PO DAILY 90 days isosorbide mononitrate ER 30 mg PO DAILY 90 days losartan 50 mg PO BID melatonin 10 mg PO BEDTIME Tobacco use date assessed: 05/23/23 Dental Screening Dental Screen Date: 05/23/23 HPI PE HPI Details Pt is here for a PE. Labs were already performed. Due for colon screen, will refer to GI. PSA is up to date. Pt's PSA was elevated at 7.08. He reports having a previous biopsy that was negative. He does report weak stream and frequent nocturia. Will refer to urology. Pt is following up with cardiology. [facility] Medical History High cholesterol Hypertension Laceration of leg Surgical History H/O heart artery stent History of inguinal hernia Family History Father No problems noted. Mother Breast cancer Son No problems noted. Son No problems noted. Maternal Grandfather No problems noted. Maternal Grandmother Cancer Paternal Grandfather No problems noted. Paternal Grandmother No problems noted. Social History Housing: House Alcohol intake: current Alcohol intake frequency: 3 or more drinks per day Alcohol type: beer Comment: [facility] Patient Tobacco Use Status: Former Tobacco user Tobacco use type: Cigarette Years Smoked: 35 e-Cigarette/Vaping Use: Never Used Second Hand Smoke Exposure: No service: No Current occupational status: employed Cognitive needs: No Hearing needs: No Vision needs: No Questionnaire PHQ-9 Over the last 2 weeks, how often have you been bothered by any of the following problems? 23313 - PHQ-9 Billing: Patient declined-do not bill Source: Developed by Drs. Raymond Roman, Holley Gutierrez, Hayden Dhillon and colleagues, with an educational shonna from [employer]. Thrive Questionnaire Date Thrive assessed: 05/23/23 I am a: Patient What is your living situation today?: I have a steady place to live Within the past 12 months, did the food you bought not last and you didn't have the money to get more?: Never true Within the past 12 months, did you worry whether your food would run out before you got money to buy more?: Never true Do you have trouble paying for medicines?: No Do you have trouble getting transportation to medical appointments?: No Do you have trouble paying your heating and electricity bill?: No Do you have trouble taking care of your child, family member or friend?: No Do you have trouble with day-to-day activities such as bathing, preparing meals, shopping, managing finances, etc.?: No Are you interested in more education?: No Please select the resources that you would like help with: None Currently or been in a relationship where the following occur: I choose not to answer THRIVE Score: 0 AUDIT C Alcohol Use Questionnaire (AUDIT-C) 1. How often do you have a drink containing alcohol?: 4 or more times a week 2. How many drinks containing alcohol do you have on a typical day when you are drinking?: 3 or 4 3. How often do you have six or more drinks on one occasion?: Weekly Total Score: 8 ANDRES-7 AMB Questionnaire ANDRES-7 Date ANDRES - 7 assessed: 05/23/23 Feeling nervous, anxious, or on edge: 0 = Not at all Not being able to stop or control worryin = Not at all Worrying too much about different things: 0 = Not at all Trouble relaxin = Not at all Being so restless that it is hard to sit still: 0 = Not at all Becoming easily annoyed or irritable: 0 = Not at all Feeling afraid as if something awful might happen: 0 = Not at all Total ANDRES-7 score (0-4 normal; 5-9 mild; 10-14 moderate; 15-21 severe): 0 Source: Developed by Drs. Raymond Roman, Holely Gutierrez, Hayden Dhillon and colleagues, with an educational shonna from [employer]. ANDRES-7 Assessment Billing ANDRES-7 Assessment Tool: ANDRES-7 Assessment 27028 Review of Systems Const Denies chills and Denies fever(s) Eyes Denies blurry vision ENT Denies vertigo, Denies dizziness and Denies sore throat Card Denies chest pain at rest, Denies chest pain with activity, Denies diaphoresis, Denies dyspnea and Denies dyspnea on exertion Resp Denies cough, Denies dyspnea, Denies dyspnea on exertion and Denies wheezing GI Denies abdominal pain, Denies melena, Denies hematochezia, Denies constipation, Denies diarrhea and Denies loose stools Denies hematuria Musc Denies numbness and Denies tingling Skin/Breast Denies lesions Neuro Denies vertigo, Denies dizziness, Denies numbness and Denies tingling Psych Denies anxiety, Denies depression, Denies homicidal ideation, Denies suicidal ideation and Denies other (substance abuse) Aller/Immun Denies wheezing Physical exam (Primary Care) Vital Signs: Last Vital Signs Pulse 78 11/20/23 12:53 BP 132/80 11/20/23 13:34 Pulse Ox 98 11/20/23 12:53 Oxygen Delivery Method Room Air 11/20/23 12:53 BMI result Body Mass Index 31.9 Tobacco/Smoking Status: Tobacco use Status Tobacco use date assessed 05/23/23 11/20/23 12:56 Patient Tobacco Use Status Former Tobacco user 11/20/23 12:56 Tobacco use type Cigarette 11/20/23 12:56 e-Cigarette/Vaping Use Never Used 11/20/23 12:56 Thrive Assessment: Date of Thrive Assessment Date Thrive assessed 05/23/23 11/20/23 12:56 Currently or been in a relationship where the following occur: I choose not to answer Const General: cooperative Nutritional Appearance: well nourished Orientation/consciousness: patient oriented x3 HENMT Head: Yes normal to inspection, Yes normocephalic and Yes atraumatic Ears: TM's normal bilaterally Eyes General: appearance normal, both eyes and all related structures Alignment and Position: alignment normal and position normal Neck Neck: Yes normal visual inspection, Yes no lymphadenopathy and Yes supple Resp Effort & Inspection: normal respiratory effort Auscultation: clear to auscultation bilaterally Cardio Rate: regular rate Rhythm: regular rhythm Heart sounds: S1 normal heart sound present, S2 normal heart sound present and no murmurs GI Palpation (GI): Soft to palpation and nontender Auscultation: normal bowel sounds Other: KATHY: prostate not enlarged, smooth central groove, no nodules Male General Exam: Yes normal external exam Penis: normal penis Scrotum: scrotum normal, testes descended bilaterally and no inguinal hernias Testes: no testicular mass Skin Rashes: no rashes Neuro General: patient oriented x3, moves all extremities, no focal motor deficits and deep tendon reflexes 2+ bilaterally Romberg Test: Negative Psych Appearance: grossly normal Mental Status: mental status grossly normal Speech and movement: Normal speech and movement present Affect: normal affect Attitude: cooperative Thought process: Normal thought process present Thought content: Normal thought content present Insight: Good insight present (Psych) Judgement: Good judgement present (Psych) Assessment and Plan Assessment & Plan (1) Elevated PSA: Code(s): R97.20 - Elevated prostate specific antigen [PSA] Plan: Referred to urology (2) Physical exam: Code(s): Z00.00 - Encounter for general adult medical examination without abnormal findings (3) Non-ST elevation AR (NSTEMI): Code(s): I21.4 - Non-ST elevation (NSTEMI) myocardial infarction Plan: following up with cardiology (4) H/O heart artery stent: Code(s): Z95.5 - Presence of coronary angioplasty implant and graft (5) Screening for colon cancer: Code(s): Z12.11 - Encounter for screening for malignant neoplasm of colon Plan: referred Plan The patient agreed to the use of a medical laboratory technicians for this encounter. Scribed for NEDRA Carey by terrence Mistry scribe, on 11/20/2023 at 13:00 EST. Orders: Orders AMB EKG-In Office Today I21.4 - Non-ST elevation (NSTEMI) myocardial infarction, Z00.00 - Encounter for general adult medical examination without abnormal findings, Z95.5 - Presence of coronary angioplasty implant and graft Referrals Urology Referral R97.20 - Elevated prostate specific antigen [PSA] Gastroenterology Referral Z12.11 - Encounter for screening for malignant neoplasm of colon Medications: Changed From carvedilol must administer with a meal/food 12.5 mg PO BID 90 days 180 tabs 0RF To carvedilol must administer with a meal/food 25 mg PO BID Refilled cyclobenzaprine 10 mg PO BEDTIME PRN 30 tabs 0RF muscle spasm Coding Level of Care Code Est Pt Prev Care 40-64y(45526) Diagnoses Elevated PSA R97.20 Physical exam Z00.00 Non-ST elevation AR (NSTEMI) I21.4 H/O heart artery stent Z95.5 Screening for colon cancer Z12.11 Additional Codes ANDRES-7 Assessment Billing - ANDRES-7 Assessment Tool: ANDRES-7 Assessment 18063 ([id number])
[2023-11-20 12:53] VITALS: BP 138/90; PULSE 78; O2SAT 98; BMI 31.9
[2023-11-20 13:34] VITALS: BP 132/80
== END 2023-11-20 13:43 | disposition home or self-care (01) ==
PROVIDERS: PCP Nurse Practitioner Family; Visit Provider Nurse Practitioner Family
DX: R97.20 Elevated prostate specific antigen [PSA] (principal); Z00.00 Encounter for general adult medical examination without abnormal findings; I21.4 Non-ST elevation (NSTEMI) myocardial infarction; Z95.5 Presence of coronary angioplasty implant and graft; Z12.11 Encounter for screening for malignant neoplasm of colon

== ENCOUNTER → 2023-11-20 12:42 | Outpatient (BNVA) | payer BC, SELFPAY | PROVIDERS: PCP Nurse Practitioner Family; Visit Provider Nurse Practitioner Family | DX: Z00.01 Encounter for general adult medical examination with abnormal findings (principal); R97.20 Elevated prostate specific antigen [PSA]; I25.2 Old myocardial infarction; Z95.5 Presence of coronary angioplasty implant and graft | CPT/HCPCS: 96127 ==

== ENCOUNTER 2024-01-04 08:47 | Outpatient (AMB) | payer BC, SELFPAY ==
--- NOTE | 2024-01-04 08:58 | A.OFFVIS_ITS ---
Intake Visit Reasons: elevated PSA/Nocturia/Weak Stream Intake Note: New patient is present for Elevated PSA/Weak Stream Blood Thinners: Aspirin, Plavix PSA: 11/19/2023 7.08 Last Hemoglobin A1C: 07/11/2021 5.5 Patient reported to PCP Dr Washburn that he had a prostate biopsy in past that resulted negative. Patient also reports Frequent Nocturia and weak urinary stream Touch Up Edger Required: No Accompanied by: Self / Same As Patient Allergies codeine Allergy (Unknown, Verified 11/20/23 13:39) Unknown Any med. w/ codeine Adverse Reaction (Unknown, Uncoded 11/20/23 13:39) Unknown HPI Comments Details: Faisal is a pleasant male. He is a patient of Dr. Boyd. He is seen for the following urologic conditions - elevated PSA Had been seen previously back in 2019 Prostate biopsy performed which was negative PSA at that time 7.7 Suggest 4 month follow-up MRI with PSA He would like to make sure [facility] Elevated PSA PSA - 12/14 7.7, 11/19 7.1 Prior prostate biopsy 02/13 7.7, 11/19 7.1 Plan imaging surveillance FOR[facility], [facility] Medical History High cholesterol Hypertension Laceration of leg Surgical History H/O heart artery stent History of inguinal hernia Family History Father No problems noted. Mother Breast cancer Son No problems noted. Son No problems noted. Maternal Grandfather No problems noted. Maternal Grandmother Cancer Paternal Grandfather No problems noted. Paternal Grandmother No problems noted. Social History Housing: House Alcohol intake: current Alcohol intake frequency: 3 or more drinks per day Alcohol type: beer Comment: [facility] Patient Tobacco Use Status: Former Tobacco user Tobacco use type: Cigarette Years Smoked: 35 e-Cigarette/Vaping Use: Never Used Second Hand Smoke Exposure: No service: No Current occupational status: employed Cognitive needs: No Hearing needs: No Vision needs: No Review of Systems Const Denies chills and Denies fever(s) Card Reports no additional complaints and Denies syncope Resp Denies cough GI Denies abdominal pain and Denies heartburn Reports as per HPI and Denies change in libido Neuro Denies syncope Psych Denies change in libido Endo Denies change in libido Physical Exam Const General: cooperative, healthy appearing, comfortable and no acute distress Orientation/consciousness: patient oriented x3 HEENT Face and sinus: Yes normal facial exam Mouth: moist mucous membranes Neck Neck: Yes normal visual inspection, Yes full ROM and Yes trachea midline Chest Chest palpation & inspection: normal inspection of the chest Resp Effort & Inspection: normal respiratory effort, able to speak in complete sentences and no respiratory distress GI Inspection: Yes normal to inspection Back/Spine/Pelvis Cervical Spine: normal cervical lordosis Thoracic/Lumbar Spine: thoracic and lumbar spine normal to inspection Skin General skin exam: no rashes or lesions noted Neuro General: patient oriented x3, gait normal, tone normal and moves all extremities Extrem General: Yes normal to inspection and Yes capillary refill normal Assessment & Plan Assessment & Plan (1) Elevated PSA: Code(s): R97.20 - Elevated prostate specific antigen [PSA] Category: Medical Plan Four month follow-up imaging Orders: Orders PSA,Total (Free>4and<10) 4 Months R97.20 - Elevated prostate specific antigen [PSA] MR Prostate wo/w con Today R97.20 - Elevated prostate specific antigen [PSA] MR pelvis wo/w con Today C61 - Malignant neoplasm of prostate, R97.20 - Elevated prostate specific antigen [PSA] Patient Instructions: Imaging studies, laboratory and physical exam results were discussed and reviewed in detail. No major barriers to patient understanding were identified. An opportunity to ask questions regarding the treatment plan was provided. All questions were answered. The patient expressed understanding and agreement with the above treatment plan. The patient is aware they should contact our office by phone for worsening of their current condition or the appearance of new urologic symptoms. Compliance is encouraged with any medications and followup testing that is ordered. It is a privilege to participate in the urologic care of your patient. If you have any questions or concerns regarding treatment for the above conditions, or other urologic issues, please do not hesitate to contact me. The office telephone contact is [phone]. This note is constructed using voice recognition software. While every effort has been made to ensure accuracy labor relations worker errors may have been included. Yours sincerely, Dr Wade Bee MD, [facility] - Urology Providers of Expert, Compassionate Care for the Genitourinary System Coding Level of Care Code New Pt Level 4 (54377) Diagnoses Elevated PSA R97.20
== END 2024-01-04 09:26 | disposition home or self-care (01) ==
PROVIDERS: PCP Nurse Practitioner Family; Visit Provider Urology
DX: R97.20 Elevated prostate specific antigen [PSA] (principal)
CPT/HCPCS: 99204